=== PATIENT | female | born 1965 | race Caucasian/White ===

== ENCOUNTER 2017-11-11 11:41 | Emergency (ER) | payer BC ==
[2017-11-11 12:52] VITALS: BP 145/67
[2017-11-11] MEDS ORDERED: Tetan/Diph/Pertus SYR(Tdap)* 0.5 ML SYR(BOOSTRIX) use SYR IM ONE (13:17)
--- NOTE | 2017-11-11 13:17 | UC ---
Skin Complaint HPI - HPI Summary HPI Summary: Patient bleak she was stung by an insect while outside confirming on Wednesday. Patient now has a 15 cm x 7 cm erythematous area on her abdomen with a right inguinal swollen node and scattered draining vesicles above her bellybutton. 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 ?: No Onset/Duration: Sudden Onset, Lasting Days - 3 Skin Exposure Onset/Duration: Days Ago - 3 Timing: Constant Onset Severity: Mild Current Severity: Moderate Pain Intensity: 5 Pain Scale Used: 0-10 Numeric Location: Discrete - Center of abdomen Character: Pain, Redness Aggravating Factor(s): Touch Alleviating Factor(s): Nothing Associated Signs & Symptoms: Positive: Rash - Allergy/Home Medications Allergies/Adverse Reactions: Allergies Allergy/AdvReac Type Severity Reaction Status Date / Time Sulfa (Sulfonamide Allergy Hives Verified 11/11/17 12:52 Antibiotics) Review of Systems Constitutional: Negative Skin: Negative, Rash - 15 x 7cm erythemic area on abdomen Eyes: Negative ENT: Negative Respiratory: Negative Cardiovascular: Negative Gastrointestinal: Negative Genitourinary: Negative Motor: Negative Neurovascular: Negative Musculoskeletal: Negative Neurological: Negative Psychological: Negative Is Patient Immunocompromised?: No All Other Systems Reviewed And Are Negative: Yes PMH/Surg Hx/FS Hx/Imm Hx Previously Healthy: Yes - Surgical History Surgical History: Yes Surgery Procedure, Year, and Place: right hand, left ankle-pins and plate placed then removed - Family History Known Family History: Positive: None - Social History Occupation: Employed Full-time Lives: With Family Alcohol Use: Occasionally Substance Use Type: None Smoking Status (MU): Heavy Every Day Tobacco Smoker Have You Smoked in the Last Year: Yes Cessation Counseling: Counseled 3+Min - 10 Min - Immunization History Most Recent Tetanus Shot: not UTD per PCP office Hx Tetanus, Diphtheria Vaccination: Yes Vaccination Up to Date: No Physical Exam Triage Information Reviewed: Yes Appearance: Well-Appearing, No Pain Distress, Well-Nourished Vital Signs: Initial Vital Signs Temp 97.8 F 11/11/17 12:43 Pulse 70 11/11/17 12:43 Resp 18 11/11/17 12:43 BP 145/67 11/11/17 12:43 Pulse Ox 100 11/11/17 12:43 Vital Signs Reviewed: Yes Eye Exam: Normal Eyes: Positive: Conjunctiva Clear ENT Exam: Normal ENT: Positive: Normal ENT inspection, Hearing grossly normal. Negative: Trismus , Muffled voice, Hoarse voice Dental Exam: Normal Neck exam: Normal Neck: Positive: Supple, Nontender, No Lymphadenopathy Respiratory Exam: Normal Respiratory: Positive: No respiratory distress, No accessory muscle use Cardiovascular Exam: Normal Cardiovascular: Positive: Pulses Normal, Brisk Capillary Refill Abdominal Exam: Normal Abdomen Description: Positive: No Organomegaly, Soft, Other: - Superficial tenderness at site of cellulitis. Negative: CVA Tenderness (R), CVA Tenderness (L) Bowel Sounds: Positive: Present Musculoskeletal Exam: Normal Musculoskeletal: Positive: Strength Intact, ROM Intact, No Edema, Other: - Swollen right inguinal lymph node Neurological Exam: Normal Neurological: Positive: Alert Psychological Exam: Normal Psychological: Positive: Normal Response To Family Skin Exam: Other Skin: Positive: Other - 15 x 7 cm area of erythema on abdomen. Scattered vesicles above bellybutton Course/Dx - Course Course Of Treatment: Up Date tetanus, wash & warm soak, doxycycline, culture wound, follow with PCP, nicotine cessation information - Diagnoses Provider Diagnoses: cellulitis midabdomen, lymphadenopathy, hypertension without diagnosis, nicotine dependence Discharge - Sign-Out/Discharge Documenting (check all that apply): Discharge/Admit/Transfer - Discharge Plan Condition: Stable Disposition: HOME Prescriptions: DOXYcycline CAP(*) [DOXYcycline 100MG CAP(*)] 100 mg PO BID #20 cap Patient Education Materials: How to Stop Smoking (ED), Cellulitis (ED), Hypertension (ED) Referrals: Pebbles Pierre PA [Primary Care Provider] - 1 Week - Billing Disposition and Condition Condition: STABLE Disposition: HOME
== END 2017-11-11 13:29 | disposition home or self-care (01) ==
LOC: UCCORT 11:41
DX: L03.311 Cellulitis of abdominal wall (principal); R59.1 Generalized enlarged lymph nodes; R03.0 Elevated blood-pressure reading, without diagnosis of hypertension; F17.200 Nicotine dependence, unspecified, uncomplicated; Z88.2 Allergy status to sulfonamides; Z23 Encounter for immunization
CPT/HCPCS: 87070; 87205; 90471; 90715; 99212; G0463

== ENCOUNTER 2018-05-29 17:31 | Emergency (ER) | payer BC ==
[2018-05-29 17:43] VITALS: BP 142/90
[2018-05-29] MEDS ORDERED: Lidocaine 2% W/EPI 1:100,000* 20 ML MDV INJ ONE (17:59)
--- NOTE | 2018-05-29 18:06 | UC ---
Laceration HPI - HPI Summary HPI Summary: Tripped and fell into the wood pile. Laceration over left eyebrow. - History Of Current Complaint Chief Complaint: UCLaceration Stated Complaint: LACERATION FOREHEAD Time Seen by Provider: 05/29/18 17:56 Hx Obtained From: Patient Hx Last Menstrual Period: 8 mos. Laceration Location: Face Mechanism Of Injury: Blunt Trauma Onset/Duration: Sudden Onset Severity: Mild Pain Intensity: 2 Aggravating Factors: Movement Head: 1 - 3.4 cm laceration 2 - Numbness - Allergies/Home Medications Allergies/Adverse Reactions: Allergies Allergy/AdvReac Type Severity Reaction Status Date / Time Sulfa (Sulfonamide Allergy Hives Verified 11/11/17 12:52 Antibiotics) Home Medications: Home Medications NK [No Home Medications Reported] 05/29/18 [History Confirmed 05/29/18] PMH/Surg Hx/FS Hx/Imm Hx Previously Healthy: Yes - Surgical History Surgical History: Yes Surgery Procedure, Year, and Place: right hand, left ankle-pins and plate placed then removed - Family History Known Family History: Negative: Cardiac Disease, Hypertension, Diabetes - Social History Occupation: Employed Full-time Lives: With Family Alcohol Use: Daily Substance Use Type: None Smoking Status (MU): Heavy Every Day Tobacco Smoker Have You Smoked in the Last Year: Yes Cessation Counseling: Patient Advised to Stop - Immunization History Most Recent Tetanus Shot: 11/03 Hx Tetanus, Diphtheria Vaccination: Yes Vaccination Up to Date: No Review of Systems All Other Systems Reviewed And Are Negative: Yes Respiratory: Positive: Cough - with smoking Physical Exam Triage Information Reviewed: Yes Appearance: Well-Appearing, No Pain Distress, Well-Nourished Vital Signs: Initial Vital Signs Temp 97.8 F 05/29/18 17:40 Pulse 90 05/29/18 17:40 Resp 16 05/29/18 17:40 BP 142/90 05/29/18 17:40 Pulse Ox 96 05/29/18 17:40 Vital Signs Reviewed: Yes Eyes: Positive: Conjunctiva Inflamed Neck exam: Normal Respiratory: Positive: Lungs clear Cardiovascular Exam: Normal Musculoskeletal Exam: Normal Neurological Exam: Normal Psychological Exam: Normal Skin Exam: Normal Laceration Repair - Laceration Repair 1 Description: Linear Laceration Size After Repair: Length (cm) - 3.4 Modified For Repair: No Type Injection: Local Anesthesia Used: 2.0% Lido Additive Used (in ml): Epi Cleansing Completed Via Routine Prep: Yes Irrigation With Pressure Irrigation Device: Yes Closure Material: Sutures Closure Method: Multilayer Suture Of: Skin - #10 6-0 nylon, SQ - #3 simple interrupted 5-0 vicryl Suture Type: Nylon - 6-0, Vicryl - 5-0 Laceration Course/Dx - Differential Dx - Laceration/Wound Differental Diagnoses: Abrasion, Avulsion, Laceration Provider Diagnoses: Lacertation left forehead Discharge - Sign-Out/Discharge Documenting (check all that apply): Patient Departure All imaging exams completed and their final reports reviewed: No Studies - Discharge Plan Condition: Stable Disposition: HOME Patient Education Materials: Care For Your Absorbable Stitches (ED), Care For Your Stitches (ED) Referrals: Kolby Gilman DO [Primary Care Provider] - Additional Instructions: OK to shower tonight. Use antibiotic ointment twice daily for 10 days. Return in 6 days for suture removal. Protect from the sun next summer to minimize scarring. Blue Lizard sunscreen is the best. - Billing Disposition and Condition Condition: STABLE Disposition: Home
== END 2018-05-29 18:48 | disposition home or self-care (01) ==
LOC: UCCORT 17:31
DX: S01.81XA Laceration without foreign body of other part of head, initial encounter (principal); W01.198A Fall on same level from slipping, tripping and stumbling with subsequent striking against other object, initial encounter; Y92.9 Unspecified place or not applicable; Z88.1 Allergy status to other antibiotic agents; F17.210 Nicotine dependence, cigarettes, uncomplicated
CPT/HCPCS: 13132; 99212; G0463

== ENCOUNTER 2018-06-04 18:12 | Emergency (ER) | payer BC ==
[2018-06-04 18:21] VITALS: BP 141/82
--- NOTE | 2018-06-04 18:25 | UC ---
UC General HPI - HPI Summary HPI Summary: sutures to face 05/29/18. here for removal. no oliver or complaints - History of Current Complaint Stated Complaint: STICHES REMOVAL - DONE HERE Time Seen by Provider: 06/04/18 18:19 Hx Obtained From: Patient Hx Last Menstrual Period: 8 mos. Associated Signs & Symptoms: Negative: Headache - Allergy/Home Medications Allergies/Adverse Reactions: Allergies Allergy/AdvReac Type Severity Reaction Status Date / Time Sulfa (Sulfonamide Allergy Hives Verified 06/04/18 18:21 Antibiotics) PMH/Surg Hx/FS Hx/Imm Hx Previously Healthy: Yes - Surgical History Surgical History: Yes Surgery Procedure, Year, and Place: right hand, left ankle-pins and plate placed then removed - Family History Known Family History: Positive: None Negative: Cardiac Disease, Hypertension, Diabetes - Social History Lives: With Family Alcohol Use: Daily Substance Use Type: None Smoking Status (MU): Heavy Every Day Tobacco Smoker Have You Smoked in the Last Year: Yes - Immunization History Most Recent Tetanus Shot: 11/03 Hx Tetanus, Diphtheria Vaccination: Yes Vaccination Up to Date: No Review of Systems All Other Systems Reviewed And Are Negative: Yes Constitutional: Positive: Negative Skin: Positive: Negative Eyes: Positive: Negative ENT: Positive: Negative Respiratory: Positive: Negative Cardiovascular: Positive: Negative Gastrointestinal: Positive: Negative Genitourinary: Positive: Negative Motor: Positive: Negative Neurovascular: Positive: Negative Musculoskeletal: Positive: Negative Neurological: Positive: Negative Psychological: Positive: Negative Physical Exam Triage Information Reviewed: Yes Appearance: Well-Appearing Vital Signs Reviewed: Yes Eyes: Positive: Conjunctiva Clear ENT: Positive: Normal ENT inspection Neck: Positive: Supple Respiratory: Positive: Normal breath sounds Cardiovascular: Positive: RRR Abdomen Description: Positive: Nontender, No Organomegaly, Soft Musculoskeletal: Positive: ROM Intact Neurological: Positive: Alert Psychological: Positive: Age Appropriate Behavior Skin Exam: Normal, Other - running stitch forehead. no erythema, swelling or tenderness. wound healed Course/Dx - Course Course Of Treatment: suture removed. tolerated well. - Differential Dx - Multi-Symptom Provider Diagnoses: suture removal face Discharge - Sign-Out/Discharge Documenting (check all that apply): Patient Departure All imaging exams completed and their final reports reviewed: No Studies - Discharge Plan Condition: Stable Disposition: HOME Patient Education Materials: Stitches Removal (ED) Referrals: Kolby Gilman DO [Primary Care Provider] - If Needed - Billing Disposition and Condition Condition: STABLE Disposition: Home
== END 2018-06-04 18:35 | disposition home or self-care (01) ==
LOC: UCCORT 18:12
DX: S01.81XD Laceration without foreign body of other part of head, subsequent encounter (principal); X58.XXXD Exposure to other specified factors, subsequent encounter; Z88.1 Allergy status to other antibiotic agents; F17.210 Nicotine dependence, cigarettes, uncomplicated